=== PATIENT | male | born 1955 | race Caucasian/White ===

== ENCOUNTER → 2016-09-09 | Outpatient (CLI) | payer MEDICARE, OTHER ==
--- NOTE | 2016-09-09 10:37 | CT ---
EXAMINATION TYPE: CT brain wo con DATE OF EXAM: 09/09/2016 9:05 AM COMPARISON: NONE HISTORY: 60-year-old male with headaches and falls, imbalance, hydrocephalus. TECHNIQUE: Examination was done in axial plane without intravenous contrast. Coronal and sagittal r econstructions performed. CT DLP: 1135 mGycm Automated exposure control for dose reduction was used. FINDINGS: There is no evidence of acute intracranial hemorrhage, acute ischemic changes, mass, mass-effect, or extra-axial fluid collection. There is no effacement of cerebral sulci or basal subarachnoid cister ns. There is no hydrocephalus. There is no midline shift. Kennedy-white matter distinction is preserv ed. There is mild generalized supratentorial volume loss and mild patchy periventricular white matter hyp odensities. Very mild nasal septal deviation. Mastoid air cells and paranasal sinuses are well pneumatized. Orbit s and globes are intact. IMPRESSION: No acute intracranial abnormality seen. Mild age-related cerebral cortical atrophy.
== END | disposition home or self-care (01) ==
LOC: RADCTMAIN 08:41
PROVIDERS: ATTEND Psychiatry & Neurology Neurology
DX: G91.9 Hydrocephalus, unspecified (principal); R26.89 Other abnormalities of gait and mobility
CPT/HCPCS: 70450

== ENCOUNTER → 2019-04-11 | Outpatient (CLI) | payer MEDICARE, OTHER | LOC: LABWHC1 11:01 | PROVIDERS: ATTEND Psychiatry & Neurology Neurology | DX: R53.1 Weakness (principal) | CPT/HCPCS: 36415; 82550 ==

== ENCOUNTER → 2019-04-26 | Outpatient (CLI) | payer MEDICARE, OTHER ==
--- NOTE | 2019-04-26 08:37 | CT ---
EXAMINATION TYPE: CT brain wo con DATE OF EXAM: 04/26/2019 COMPARISON: 09/09/2016 HISTORY: Worsening gait CT DLP: [address] of the brain was performed. The ventricles, basal cisterns and sulci overlying the cerebral convexities demonstrate mild enlargem ent. There is no evidence for intracranial hemorrhage or sulcal effacement. There is decreased attenuation about the periventricular white matter and deep white matter of both c erebral hemispheres, compatible with chronic small vessel ischemia. Differential diagnosis does inclu de demyelination. No mass effects are seen.No midline shift. Osseous calvarium is intact. If symptoms persist consider MRI. IMPRESSION: 1. Age related atrophic and chronic small vessel ischemic change without acute intracranial process s een at this time.
== END | disposition home or self-care (01) ==
LOC: RADCTMAIN 07:34
PROVIDERS: ATTEND Psychiatry & Neurology Neurology
DX: G31.1 Senile degeneration of brain, not elsewhere classified (principal); I67.82 Cerebral ischemia
CPT/HCPCS: 70450

== ENCOUNTER → 2019-05-02 | Outpatient (CLI) | payer MEDICARE, OTHER ==
[2019-05-02 17:54] LABS: Hemoglobin A1C 5.5 % (4.0-6.0)
[2019-05-02 18:03] LABS: ALT 32 U/L (10-49); AST 28 U/L (14-35); African American GFR (CKD) 109.4 (60.0-200.0); Albumin/Globulin Ratio 1.64 (1.60-3.17); Alkaline Phosphatase 60 U/L (41-126); Calcium 9.4 mg/dL (8.7-10.3); Carbon Dioxide 25.6 mmol/L (21.6-31.8); Chloride 95 mmol/L (96-109); Chol/HDL Ratio 3.02; Cholesterol 169 mg/dL (0-200); Globulin 2.8 g/dL (1.6-3.3); Glucose 85 mg/dL (70-110); LDL Cholesterol,Calculated 95.2 mg/dL (0.0-131.0); Sodium 131 mmol/L (135-145); Total Bilirubin 0.6 mg/dL (0.3-1.2); Total Protein 7.4 g/dL (6.2-8.2)
[2019-05-02 22:46] LABS: Carbamazepine (Tegretol) <0.2 ug/mL (4.0-12.0)
== END | disposition home or self-care (01) ==
LOC: LABWHC1 10:04
PROVIDERS: ATTEND Psychiatry & Neurology Neurology
DX: E11.8 Type 2 diabetes mellitus with unspecified complications (principal); E78.00 Pure hypercholesterolemia, unspecified; E03.9 Hypothyroidism, unspecified; Z12.5 Encounter for screening for malignant neoplasm of prostate; G40.909 Epilepsy, unspecified, not intractable, without status epilepticus; Z79.899 Other long term (current) drug therapy
CPT/HCPCS: 84439; 80156; 80164; 84481; 80061; 80053; 80175; 84443; 83036; 36415; G0103

== ENCOUNTER → 2019-06-14 | Outpatient (CLI) | payer MEDICARE, OTHER | END | disposition home or self-care (01) | LOC: LABWHC1 07:39 | PROVIDERS: ATTEND Psychiatry & Neurology Neurology | DX: G40.909 Epilepsy, unspecified, not intractable, without status epilepticus (principal); T50.905A Adverse effect of unspecified drugs, medicaments and biological substances, initial encounter | CPT/HCPCS: 36415; 80164; 80175 ==

== ENCOUNTER → 2019-08-09 | Outpatient (CLI) | payer MEDICARE, OTHER | END | disposition home or self-care (01) | LOC: LABWHC1 07:02 | PROVIDERS: ATTEND Psychiatry & Neurology Neurology | DX: M54.2 Cervicalgia (principal); G20 Parkinson's disease; G44.219 Episodic tension-type headache, not intractable; G40.009 Localization-related (focal) (partial) idiopathic epilepsy and epileptic syndromes with seizures of localized onset, not intractable, without status epilepticus | CPT/HCPCS: 36415; 80164; 80175 ==

== ENCOUNTER → 2022-03-16 | Outpatient (CLI) | payer MEDICARE, OTHER ==
[2022-03-16 19:03] LABS: Protein, Total 7.7 g/dL (6.2-8.2)
== END | disposition home or self-care (01) ==
LOC: LABWHC1 11:32
PROVIDERS: ATTEND Family Medicine
DX: R77.1 Abnormality of globulin (principal)
CPT/HCPCS: 36415; 84165

== ENCOUNTER → 2022-04-06 | Outpatient (CLI) | payer MEDICARE, OTHER ==
[~2022-04-06] MED LIST: DOBUTamine DRIP for NUC MED 500 MG in DEXTROSE/WATER 1 250ML.BAG IV PRN; DOBUTamine DRIP for NUC MED 500 MG/250 ML BAG IV ONE
--- NOTE | 2022-04-07 13:05 | CA ---
Dobutamine Stress Echocardiogram Report Mauricio Mcconnell Age: 66 Gender: M : 1955 Exam Date: 04/06/2022 10:29 Exam Location: [facility] Ordering Physician: Brannon Neri MD Referring Physician: , Information Technology Intern: Vikki Fairbanks RDCS Technologist: Ht (in): 68 Wt (lb): 247 Procedure CPT: Indication: R60.0 lower extremity edema ICD-9 Codes: Rhythm: Patient History: Shortness of breath Cardiac Medications: Medications in past 24 hours: Contrast: Lumason Total Dose (mL): 15 Stress Results Protocol: Dobutamine Peak Dose (???g/kg/min): 40 Duration (min:sec): Atropine:(mg) Target HR: 130 Double Product: 39934 Resting HR: 66 Resting BP: 174 / 75 Peak HR: 131 Peak BP: 172 / 70 Max Predicted HR: 153 86 % Max Predicted HR Stress Summary: BP Response: Reason for Termination: Exceeded target heart rate (85% max predicted) Cardiac Symptoms: Test terminated after reaching target heart rate (85% max predicted) ECG Analysis Resting EKG: Stress EKG: Arrhythmia: Echo Analysis Base Echo Analysis: Low Echo Anaylsis: Peak Echo Analysis: Recovery Echo: MEASUREMENTS (Male/Female) Normal Values CONCLUSIONS Patient underwent dobutamine stress echo with infusion of dobutamine into Stage 3 for a total of 11 minutes 51 seconds. Patient's maximum heart rate was 131 which represented 85 % age- predicted maximum heart rate. Stress EKG portion: At baseline patient's EKG showed normal sinus rhythm, normal axis, no significant ST or T wave abnormalities. At peak dobutamine infusion, EKG showed mild nondiagnostic 0.[address] depressions in the inferolateral leads. Stress echo portion: 2-D echocardiogram was performed in the parasternal long, personal short, apical 2 and apical four-chamber views at rest, low-dose, peak infusion and in recovery. At baseline, echocardiogram showed left ventricular ejection fraction 55% without wall motion abnormalities. With peak infusion, echocardiogram shows improvement in left ventricular ejection fraction, increase contractility, decrease in left ventricular end systolic dimension without wall motion abnormalities consistent with a normal response to dobutamine. Conclusions: 1. Normal stress EKG and echo response to dobutamine infusion without any evidence of inducible ischemia. Dr. Wilber Roland DO (Electronically Signed) Final Date: 06 April 2022 13:00
== END | disposition home or self-care (01) ==
LOC: RADNMMAIN 09:44
PROVIDERS: ATTEND Family Medicine
DX: R68.89 Other general symptoms and signs (principal); R60.0 Localized edema
CPT/HCPCS: C8930; J1250; Q9950; 93351

== ENCOUNTER → 2022-07-19 | Outpatient (CLI) | payer MEDICARE | END | disposition home or self-care (01) | LOC: LABWHC1 07:38 | PROVIDERS: ATTEND Psychiatry & Neurology Neurology | DX: G40.209 Localization-related (focal) (partial) symptomatic epilepsy and epileptic syndromes with complex partial seizures, not intractable, without status epilepticus (principal) | CPT/HCPCS: 36415; 80164 ==

== ENCOUNTER → 2023-06-22 | Outpatient (CLI) | payer MEDICARE, OTHER | END | disposition home or self-care (01) | LOC: LABWHC1 07:29 | PROVIDERS: ATTEND Psychiatry & Neurology Neurology | DX: G40.209 Localization-related (focal) (partial) symptomatic epilepsy and epileptic syndromes with complex partial seizures, not intractable, without status epilepticus (principal) | CPT/HCPCS: 36415; 80164 ==

== ENCOUNTER 2023-09-03 15:23 | Emergency (ER) | payer MEDICARE, OTHER ==
[2023-09-03 15:40] LABS: Glucose,Whole Blood 90 mg/dL (70-110)
[2023-09-03 15:53] VITALS: RESP 18; TEMP 97.7
[2023-09-03] MEDS ORDERED: LIDOCAINE 1%-EPI 1:100,000 50 ML VIAL SQ STA (15:58)
--- NOTE | 2023-09-03 16:03 | ED ---
Fall HPI - General Chief Complaint: Fall Stated Complaint: fall,facial lac Time Seen by Provider: 09/03/23 15:26 Source: patient, EMS, RN notes reviewed, old records reviewed Mode of arrival: EMS Limitations: no limitations - History of Present Illness Initial Comments: This is a 67-year-old male to the ER for evaluation today. Patient presents today for evaluation regards to fall fall with head injury. Patient also has significant laceration to his left cheek, positive loss of consciousness severe headache and neck pain. Patient is a poor historian secondary to underlying baseline mental status MD Complaint: fall -: days(s) Fall From: standing When Fall Occurred: 1-3 hours PROCEDURES TECH Fall Witnessed: yes, by family Place Fall Occurred: home Loss of Consciousness: none Prolonged Down Time?: no Symptoms Prior to Fall: none Location: head, face Severity: moderate Severity scale (1-10): 4 Context: tripped/slipped Associated Symptoms: denies - Related Data Home Medications Medication Instructions Recorded Confirmed ARIPiprazole [Abilify] 30 mg PO DAILY 11/17/15 11/17/15 Atorvastatin [Lipitor] 20 mg PO HS 11/17/15 11/17/15 Divalproex [Depakote] 1,000 mg PO QAM 11/17/15 11/17/15 Divalproex [Depakote] 1,500 mg PO HS 11/17/15 11/17/15 Insulin NPL/Insulin Lispro 5 unit SQ BID 11/17/15 11/17/15 [humaLOG MIX 75-25 VIAL] LORazepam [Ativan] 0.5 mg PO TID 11/17/15 11/17/15 Levothyroxine Sodium 50 mcg PO DAILY 11/17/15 11/17/15 Magnesium Oxide [Mag-Ox] 500 mg PO DAILY 11/17/15 11/17/15 Pantoprazole [Protonix] 40 mg PO DAILY 11/17/15 11/17/15 Tamsulosin [Flomax] 0.4 mg PO DAILY 11/17/15 11/17/15 Timolol [Betimol 0.5% Ophth Soln] 1 drop BOTH EYES HS 11/17/15 11/17/15 aMILoride-HCTZ 5-50 mg [Moduretic 1 tab PO DAILY 11/17/15 11/17/15 5-50] amLODIPine BESYLATE [Amlodipine 10 mg PO DAILY 11/17/15 11/17/15 Besylate] atenoloL 25 mg PO DAILY 11/17/15 11/17/15 carBAMazepine [Carbatrol] 600 mg PO Q12HR 11/17/15 11/17/15 lamoTRIgine 200 mg PO BID 11/17/15 11/17/15 metFORMIN HCL [Glucophage] 500 mg PO DAILY 11/17/15 11/17/15 Allergies Allergy/AdvReac Type Severity Reaction Status Date / Time No Known Allergies Allergy Verified 09/03/23 15:38 Review of Systems ROS Statement: Those systems with pertinent positive or pertinent negative responses have been documented in the HPI. ROS Other: All systems not noted in ROS Statement are negative. Past Medical History Past Medical History: Coronary Artery Disease (CAD), Diabetes Mellitus, GERD/Reflux, Hyperlipidemia, Hypertension, Seizure Disorder, Thyroid Disorder Additional Past Medical History / Comment(s): autism History of Any Multi-Drug Resistant Organisms: None Reported Past Surgical History: Unable to Obtain Past Psychological History: Bipolar Smoking Status: Never smoker Past Alcohol Use History: None Reported Past Drug Use History: None Reported General Exam Limitations: no limitations General appearance: alert, in no apparent distress Head exam: Present: normocephalic, normal inspection. Absent: atraumatic (15 cm laceration from left jaw to left yarsani) Eye exam: Present: normal appearance, PERRL, EOMI. Absent: scleral icterus, conjunctival injection, periorbital swelling ENT exam: Present: normal exam, mucous membranes moist Neck exam: Present: normal inspection. Absent: tenderness, meningismus, lymphadenopathy Respiratory exam: Present: normal lung sounds bilaterally. Absent: respiratory distress, wheezes, rales, rhonchi, stridor Cardiovascular Exam: Present: regular rate, normal rhythm, normal heart sounds. Absent: systolic murmur, diastolic murmur, rubs, gallop, clicks GI/Abdominal exam: Present: soft, normal bowel sounds. Absent: distended, tenderness, guarding, rebound, rigid Extremities exam: Present: normal inspection, full ROM, normal capillary refill. Absent: tenderness, pedal edema, joint swelling, calf tenderness Back exam: Present: normal inspection Neurological exam: Present: alert, oriented X3, CN II-XII intact Psychiatric exam: Present: normal affect, normal mood Skin exam: Present: warm, dry, intact, normal color. Absent: rash Course Vital Signs 09/03/23 09/03/23 15:32 18:40 Temperature 97.7 F Pulse Rate 63 65 Respiratory 18 18 Rate Blood Pressure 145/80 155/80 O2 Sat by Pulse 97 95 Oximetry - Reevaluation(s) Reevaluation #1: 09/03/23 16:41 Medical records reviewed Reevaluation #2: 09/03/23 16:41 Patient has no change in symptoms Reevaluation #3: Patient informed of results and questions answered Reevaluation #4: Was pt. sent in by a medical professional or institution (, [facility], DOLL REPAIRER, urgent care, hospital, or [place] health care facility...) When possible be specific @ -no Did you speak to anyone other than the patient for history (EMS, parent, family, police, friend...)? What history was obtained from this source @ -no Did you review nursing and triage notes (agree or disagree)? Why? @ -agree Are old charts reviewed (outside hosp., previous admission, EMS record, old EKG, old radiological studies, urgent care reports/EKG's, [place] health care facility records)? Report findings @ -yes Differential Diagnosis (chest pain, altered mental status, abdominal pain women, abdominal pain men, vaginal bleeding, weakness, fever, dyspnea, syncope, headache, dizziness, GI bleed, back pain, seizure, CVA, palpatations, mental health, musculoskeletal)? @ -prior EKG interpreted by me (3pts min.). @ -no X-rays interpreted by me (1pt min.). @ -no CT interpreted by me (1pt min.). @ -Yes negative for acute disease U/S interpreted by me (1pt. min.). @ -no What testing was considered but not performed or refused? (CT, X-rays, U/S, labs)? Why? @ -none What meds were considered but not given or refused? Why? @ -none Did you discuss the management of the patient with other professionals (professionals i.e. [facility] Weaver, DOLL REPAIRER, lab, RT, psych nurse, director of social services, estate planning counselor, teacher, business services officer, case management director)? Give summary @ -no Was smoking cessation discussed for >3mins.? @ -no Was critical care preformed (if so, how long)? @ -no Were there social determinants of health that impacted care today? How? (Homelessness, low income, unemployed, alcoholism, drug addiction, transportation, low edu. Level, literacy, decrease access to med. care, halfway, rehab)? @ -none Was there de-escalation of care discussed even if they declined (Discuss DNR or withdrawal of care, Hospice)? DNR status @ -no What co-morbidities impacted this encounter? (DM, HTN, Smoking, COPD, CAD, Cancer, CVA, ARF, Chemo, Hep., AIDS, mental health diagnosis, sleep apnea, morbid obesity)? @ -none Was patient admitted / discharged? Hospital course, mention meds given and route, prescriptions, significant lab abnormalities, going to OR and other pertinent info. @ - 67 female to ER for evaluation of significant left-sided facial laceration 15 cm facial laceration was repaired here in the ER, patient is in no distress and can be discharged home does not appear to be muscle damage Discharge Undiagnosed new problem with uncertain prognosis? @ -no Drug Therapy requiring intensive monitoring for toxicity (Heparin, Nitro, Insulin, Cardizem)? @ -no Were any procedures done? @ -Yes laceration repair Diagnosis/symptom? @ -Fall with face laceration Acute, or Chronic, or Acute on Chronic? @ -Acute Uncomplicated (without systemic symptoms) or Complicated (systemic symptoms)? @ -Complicated Side effects of treatment? @ -no Exacerbation, Progression, or Severe Exacerbation? @ -exacerbation Poses a threat to life or bodily function? How? (Chest pain, USA, NC, pneumonia, PE, COPD, DKA, ARF, appy, cholecystitis, CVA, Diverticulitis, Homicidal, Suicidal, threat to staff... and all critical care pts) @ -yes with significant fall Reevaluation #5: Differential Headache: Migraine, tension, cluster, carbon monoxide, central venous thrombosis, pension karma temporal arteritis, acute closure glaucoma, intercranial hemorrhage, mast oiditis, sinusitis, head injury, this is not meant to be an all-inclusive list. Procedures - Laceration Laceration #1 Consent Obtained: verbal consent Indication: laceration Site: face Size (cm): 15 Description: linear Depth: simple, single layer Anesthetic Used: lidocaine 1% Size of Sutures: 5-0 Technique: simple, interrupted Complications: pain Medical Decision Making - Medical Decision Making 67 female to ER for evaluation of significant left-sided facial laceration 15 cm facial laceration was repaired here in the ER, patient is in no distress and can be discharged home does not appear to be muscle damage - Lab Data Lab Results 09/03/23 Range/Units 15:38 POC Glucose (mg/dL) 90 (70-110) mg/dL POC Glu [employer] Manager ID Payton Ahn - Radiology Data Radiology results: report reviewed (CT brain C-spine facial bones chest and pelvis x-ray are negative for acute disease), image reviewed Disposition Clinical Impression: Fall, Laceration of left cheek Narrative: 15 cm facial laceration Disposition: HOME SELF-CARE Condition: Good Instructions (If sedation given, give patient instructions): Care For Your Stitches (ED), Laceration (ED) Is patient prescribed a controlled substance at d/c from ED?: No Referrals: None,Stated [Primary Care Provider] - 1-2 days Time of Disposition: 18:00
[2023-09-03] MEDS: LIDOCAINE 1%-EPI 1:100,000 20 ML VIAL SQ STA (16:34)
--- NOTE | 2023-09-03 17:09 | XR ---
EXAMINATION TYPE: XR chest 1V DATE OF EXAM: 09/03/2023 COMPARISON: NONE HISTORY: 67-year-old male fall and pain TECHNIQUE: Single frontal view of the chest is obtained. FINDINGS: Heart upper limits of normal in size. Diffuse interstitial and hazy densities greatest in the left lower lung. No pneumothorax or pleural effusion seen. IMPRESSION: Interstitial changes in the lungs. Consider pulmonary vascular congestion, interstitial pneumonitis, or atypical pneumonias.
--- NOTE | 2023-09-03 17:10 | XR ---
EXAMINATION TYPE: XR pelvis AP view DATE OF EXAM: 09/03/2023 Comparison: None Clinical History: 67-year-old male with pain after fall Findings: Degenerative change within the visualized lumbar spine. There is mild degenerative change of both hip s. SI joints appear symmetric and intact as does the pubic symphysis. No acute fracture, subluxation, or dislocation is seen. Impression: Mild degenerative change at both hips. No acute osseous abnormality seen.
--- NOTE | 2023-09-03 17:21 | CT ---
EXAMINATION TYPE: CT brain cspine wo con, CT facial bones wo con DATE OF EXAM: 09/03/2023 COMPARISON: Brain 04/26/2019 HISTORY: 67-year-old male Fall off toilet, hitting chin, LT side laceration. Denies LOC (accession [id number]), Fall off toilet, hitting chin, LT side laceration. (accession [id number]) CT DLP: 1319 mGycm Automated exposure control for dose reduction was used. Technique: Examination of the head was done in axial plane without intravenous contrast. Coronal and sagittal reconstructions performed. CT of the cervical spine was obtained in axial plane without intravenous injection of contrast mater ial. Coronal and sagittal reformatted images were obtained from the axial views for evaluation of f ractures, spinal alignment and canal. Subsequent scanning of the facial bones with coronal and sagittal reconstructions. FINDINGS: HEAD: There is no evidence of acute intracranial hemorrhage, acute ischemic changes, mass, mass-effect, or extra-axial fluid collection. There is no effacement of cerebral sulci or basal subarachnoid cister ns. There is no hydrocephalus. There is no midline shift. Kennedy-white matter distinction is preserv ed. Mild volume loss overlying the bilateral cerebral convexities. Atherosclerotic calcifications in the carotid siphons. No calvarial fracture. Mastoid air cells well pneumatized. FACIAL BONES: The mandible and TMJs are intact as are the pterygoid plates and zygomatic arches. Trace mucosal thickening floor of the left maxillary sinus. No air-fluid level in the paranasal sinus es. Rightward nasal septal deviation. Orbits and globes appear intact. No nasal bone fracture seen. There is a deep soft tissue laceration overlying the left with laceration extending just into the und erlying facial musculature. CERVICAL SPINE: No craniocervical junction abnormality, predental space widening, or prevertebral soft tissue swellin g. Degenerative changes at the C1 dens articulation. Moderate to advanced disc/endplate degenerative change as well as hypertrophic facet and uncovertebra l joint arthropathy is present throughout. There are scattered areas of degenerative bony ankylosis t hroughout the cervical spine. Overall alignment is maintained. No acute fracture seen. Moderate to severe spinal canal stenosis C3-C4 from disc osteophyte complex. Moderate at C2-C3 and C6 -C7. Mild at C4-C5. Interval moderate and severe neuroforaminal stenoses throughout. Sagittal and coronal reformatted images confirm above findings. COMBINED IMPRESSION: 1. Mild cerebral cortical atrophy. No acute intracranial abnormality seen. 2. Laceration overlying the left side of the jaw. Laceration extends just into the superficial aspect of the underlying facial musculature. No facial bone fracture seen. 3. No acute fracture or malalignment of the cervical spine. 4. Advanced spondylotic change throughout. There may be a moderate to severe spinal canal stenosis at C3-C4. Variable moderate and severe neuroforaminal stenoses throughout.
[2023-09-03 18:56] VITALS: BP 155/80; PULSE 65
== END 2023-09-03 18:41 | disposition home or self-care (01) ==
LOC: EC 15:23
DX: S01.412A Laceration without foreign body of left cheek and temporomandibular area, initial encounter (principal); E11.9 Type 2 diabetes mellitus without complications; I25.10 Atherosclerotic heart disease of native coronary artery without angina pectoris; E78.5 Hyperlipidemia, unspecified; I10 Essential (primary) hypertension; F31.9 Bipolar disorder, unspecified; K21.9 Gastro-esophageal reflux disease without esophagitis; Z79.899 Other long term (current) drug therapy; Z79.4 Long term (current) use of insulin; Z79.84 Long term (current) use of oral hypoglycemic drugs; W01.0XXA Fall on same level from slipping, tripping and stumbling without subsequent striking against object, initial encounter
CPT/HCPCS: 12016; 36415; 70450; 70486; 71045; 72125; 72170; 99285

== ENCOUNTER 2023-12-03 23:53 | Emergency (ER) | payer MEDICARE, OTHER ==
[2023-12-03 23:59] VITALS: TEMP 98.2
--- NOTE | 2023-12-04 01:03 | CT ---
EXAMINATION TYPE: CT brain cspine wo con DATE OF EXAM: 12/04/2023 COMPARISON: Prior trauma CT September 03, 2023 HISTORY: Pt presents to the ED via EMS with complaints of a fall, after falling off a rusted out beds rosa commode. Pt reports left thigh pain. Pt does have a delay. No LOc, No thinners, no head neck o r back pain CT DLP: 1548.9 mGycm. Automated Exposure Control for Dose Reduction was Utilized. TECHNIQUE: CT scan of the head and cervical spine are performed without contrast. FINDINGS: There is no acute intracranial hemorrhage or midline shift identified. Mild to moderate v entricular and sulcal prominence redemonstrated. Mild low-attenuation in the periventricular white ma tter redemonstrated. Calvarium is intact. Globes are intact and visualized paranasal sinuses are evelio r. Cervical spine is visualized in its entirety from C1 through upper thoracic levels and demonstrates l evoconvex scoliosis centered in the lower cervical spine without evidence of acute fracture or disloc ation. Prevertebral soft tissue appears within normal limits. The C1-C2 articulation is within norm al limits on the coronal images. Vertebral body heights are maintained. There is moderate to severe multilevel disc space narrowing and spurring redemonstrated. Axial images demonstrate multilevel unco vertebral facet degenerative changes bilaterally. Thyroid gland is unremarkable. Lung apices show no pneumothorax. IMPRESSION: 1. There is no acute fracture or dislocation evident in the cervical spine. 2. No acute intracranial hemorrhage or midline shift is seen.
--- NOTE | 2023-12-04 01:13 | XR ---
EXAMINATION TYPE: XR Hip LT and AP Pelvis, XR femur LT DATE OF EXAM: 12/04/2023 COMPARISON: NONE HISTORY: Fall TECHNIQUE: A single AP view of the pelvis is obtained. Two views of the left hip and femur are obtain ed. FINDINGS: There is no acute fracture/dislocation evident in the pelvis. Moderate axial joint space l oss and spurring in both hip joints. Pubic symphysis is intact. Sacroiliac joints are symmetric and w ithin normal limits. The overlying soft tissue appears unremarkable. Two views of left hip and femur show no acute fracture or dislocation. The overlying soft tissue is u nremarkable. IMPRESSION: There is no acute fracture or dislocation in the pelvis, left hip, or left femur.
--- NOTE | 2023-12-04 01:18 | ED ---
Fall HPI - General Chief Complaint: Fall Stated Complaint: Fall Time Seen by Provider: 12/04/23 00:02 Source: patient, EMS Mode of arrival: EMS - History of Present Illness Initial Comments: 68-year-old male with history of autism presenting for evaluation post fall. Patient fell off a rusted bedside commode at home. He reports left thigh and hip pain. He denies any loss of consciousness. No blood thinners on file. No head neck or back pain. No chest pain or difficulty breathing. No abdominal pain. - Related Data Home Medications Medication Instructions Recorded Confirmed ARIPiprazole [Abilify] 30 mg PO DAILY 11/17/15 11/17/15 Atorvastatin [Lipitor] 20 mg PO HS 11/17/15 11/17/15 Divalproex [Depakote] 1,000 mg PO QAM 11/17/15 11/17/15 Divalproex [Depakote] 1,500 mg PO HS 11/17/15 11/17/15 Insulin NPL/Insulin Lispro 5 unit SQ BID 11/17/15 11/17/15 [humaLOG MIX 75-25 VIAL] LORazepam [Ativan] 0.5 mg PO TID 11/17/15 11/17/15 Levothyroxine Sodium 50 mcg PO DAILY 11/17/15 11/17/15 Magnesium Oxide [Mag-Ox] 500 mg PO DAILY 11/17/15 11/17/15 Pantoprazole [Protonix] 40 mg PO DAILY 11/17/15 11/17/15 Tamsulosin [Flomax] 0.4 mg PO DAILY 11/17/15 11/17/15 Timolol [Betimol 0.5% Ophth Soln] 1 drop BOTH EYES HS 11/17/15 11/17/15 aMILoride-HCTZ 5-50 mg [Moduretic 1 tab PO DAILY 11/17/15 11/17/15 5-50] amLODIPine BESYLATE [Amlodipine 10 mg PO DAILY 11/17/15 11/17/15 Besylate] atenoloL 25 mg PO DAILY 11/17/15 11/17/15 carBAMazepine [Carbatrol] 600 mg PO Q12HR 11/17/15 11/17/15 lamoTRIgine 200 mg PO BID 11/17/15 11/17/15 metFORMIN HCL [Glucophage] 500 mg PO DAILY 11/17/15 11/17/15 Allergies Allergy/AdvReac Type Severity Reaction Status Date / Time No Known Allergies Allergy Verified 09/03/23 15:38 Review of Systems ROS Statement: Those systems with pertinent positive or pertinent negative responses have been documented in the HPI. ROS Other: All systems not noted in ROS Statement are negative. Past Medical History Past Medical History: Coronary Artery Disease (CAD), Diabetes Mellitus, GERD/Reflux, Hyperlipidemia, Hypertension, Seizure Disorder, Thyroid Disorder Additional Past Medical History / Comment(s): autism History of Any Multi-Drug Resistant Organisms: None Reported Past Surgical History: Unable to Obtain Past Psychological History: Bipolar Smoking Status: Never smoker Past Alcohol Use History: None Reported Past Drug Use History: None Reported General Exam Limitations: altered mental status (Autism) General appearance: alert, in no apparent distress Head exam: Present: atraumatic, normocephalic Eye exam: Present: normal appearance, PERRL, EOMI Neck exam: Present: normal inspection. Absent: tenderness, meningismus Respiratory exam: Present: normal lung sounds bilaterally. Absent: respiratory distress, wheezes, rales, rhonchi, stridor Cardiovascular Exam: Present: regular rate, normal rhythm, normal heart sounds. Absent: systolic murmur, diastolic murmur, rubs, gallop, clicks Extremities exam: Present: normal inspection Neurological exam: Present: alert (From the information provided to me he is at baseline orientation) Skin exam: Present: normal color Course Vital Signs 12/03/23 12/04/23 23:56 01:32 Temperature 98.2 F Pulse Rate 75 74 Respiratory 19 18 Rate Blood Pressure 129/60 128/72 O2 Sat by Pulse 92 L 92 L Oximetry Medical Decision Making - Medical Decision Making Was pt. sent in by a medical professional or institution (, PA, UTILITY OPERATOR, urgent care, hospital, or senior care...) When possible be specific @ -No Did you speak to anyone other than the patient for history (EMS, parent, family, police, friend...)? What history was obtained from this source @ -Nursing staff who spoke with EMS Did you review nursing and triage notes (agree or disagree)? Why? @ -I reviewed and agree with nursing and triage notes Were old charts reviewed (outside hosp., previous admission, EMS record, old EKG, old radiological studies, urgent care reports/EKG's, senior care records)? Report findings @ -No old charts were reviewed Differential Diagnosis (chest pain, altered mental status, abdominal pain women, abdominal pain men, vaginal bleeding, weakness, fever, dyspnea, syncope, headache, dizziness, GI bleed, back pain, seizure, CVA, palpatations, mental health, musculoskeletal)? @ -Differential Musculoskeletal Muscular strain, contusion, ligament sprain, fracture, arthritis, septic arthritis, bursitis, cellulitis, muscle spasm, nerve compression, DVT, arterial occlusion, herpes zoster, electrolyte abnormality, tumor.... This is not meant to be in all inclusive list EKG interpreted by me (3pts min.). @ -As above X-rays interpreted by me (1pt min.). @ -X-ray of the left hip and AP pelvis as well as left femur show no acute fracture or dislocation CT interpreted by me (1pt min.). @ -CT shows no acute fracture or dislocation evident in the cervical spine. No acute intracranial hemorrhage or midline shift is seen. U/S interpreted by me (1pt. min.). @ -None done What testing was considered but not performed or refused? (CT, X-rays, U/S, labs)? Why? @ -None What meds were considered but not given or refused? Why? @ -None Did you discuss the management of the patient with other professionals (professionals i.e. , PA, UTILITY OPERATOR, lab, RT, psych nurse, high school social studies teacher, rod mill tender, teacher, tactical debriefer officer, case briefer)? Give summary @ -No Was smoking cessation discussed for >3mins.? @ -No Was critical care preformed (if so, how long)? @ -No Were there social determinants of health that impacted care today? How? (Homelessness, low income, unemployed, alcoholism, drug addiction, transportation, low edu. Level, literacy, decrease access to med. care, fci, rehab)? @ -No Was there de-escalation of care discussed even if they declined (Discuss DNR or withdrawal of care, Hospice)? DNR status @ -No What co-morbidities impacted this encounter? (DM, HTN, Smoking, COPD, CAD, Cancer, CVA, ARF, Chemo, Hep., AIDS, mental health diagnosis, sleep apnea, morbid obesity)? @ -None Was patient admitted / discharged? Hospital course, mention meds given and route, prescriptions, significant lab abnormalities, going to OR and other pertinent info. @ -68-year-old male presenting for evaluation after a fall at home. Patient has autism, history supplemented by nursing staff who spoke with EMS. No loss of consciousness. No blood thinners on file. He is complaining of left hip and thigh pain. Negative x-rays and negative CT of the brain and cervical spine. Resting comfortably. Discharged home. Follow-up with PCP. Report back to ER with any new or worsening symptoms. Discussed return parameters and answered all questions. Patient conveyed verbal understanding and agreed to the plan. I discussed this case in detail with my attending Dr. Vargas Undiagnosed new problem with uncertain prognosis? @ -No Drug Therapy requiring intensive monitoring for toxicity (Heparin, Nitro, Insulin, Cardizem)? @ -No Were any procedures done? @ -No Diagnosis/symptom? @ -Head injury, fall Acute, or Chronic, or Acute on Chronic? @ -Acute Uncomplicated (without systemic symptoms) or Complicated (systemic symptoms)? @ -Uncomplicated Side effects of treatment? @ -No Exacerbation, Progression, or Severe Exacerbation? @ -No Poses a threat to life or bodily function? How? (Chest pain, [place], [place], pneumonia, PE, COPD, DKA, ARF, appy, cholecystitis, CVA, Diverticulitis, Homicidal, Suicidal, threat to staff... and all critical care pts) @ -Low likelihood Disposition Clinical Impression: Fall, Head injury Disposition: HOME SELF-CARE Condition: Good Instructions (If sedation given, give patient instructions): Fall Prevention for Older Adults (ED), Head Injury (ED) Additional Instructions: Follow-up with PCP. Report back to ER with any new or worsening symptoms. Is patient prescribed a controlled substance at d/c from ED?: No Referrals: Deena Li MD [Primary Care Provider] - 1-2 days Time of Disposition: 01:18
[2023-12-04 01:45] VITALS: BP 128/72; PULSE 74; RESP 18
== END 2023-12-04 01:33 | disposition home or self-care (01) ==
LOC: EC 23:53
DX: S09.90XA Unspecified injury of head, initial encounter (principal); W06.XXXA Fall from bed, initial encounter; Y92.009 Unspecified place in unspecified non-institutional (private) residence as the place of occurrence of the external cause
CPT/HCPCS: 70450; 72125; 73502; 99284